=== PATIENT | female | born 1975 | race Caucasian/White ===

== ENCOUNTER 2020-06-11 21:21 | Emergency (ER) | payer MEDICAID, SELFPAY ==
--- NOTE | ~2020-06-11 | XR_ITS ---
EXAMINATION: ELBOW 3 VIEWS, RIGHT CLINICAL INFORMATION: Pain after fall. COMPARISON: None. TECHNIQUE: AP, lateral, oblique views of the right elbow are provided. FINDINGS: There are no fractures or dislocations. There is no elbow joint effusion. XR/XR elbow RT 2V IMPRESSION: Unremarkable right elbow radiographs.
[2020-06-11 21:39] VITALS: BP 128/92; PULSE 110; RESP 16; TEMP 36.6; O2SAT 96; BMI 28.1
[2020-06-11 21:42] VITALS: BP 128/92; PULSE 110; RESP 16; TEMP 36.6; O2SAT 96
--- NOTE | 2020-06-11 22:08 | ED.ALCOHOL ---
HPI - Alcohol General Chief Complaint: ETOH/Substance Use Stated Complaint: ETOH Time Seen by Provider: 06/11/20 22:07 Source: patient Mode of arrival: EMS Limitations: altered mental status (Due to influence of alcohol and drugs.) History of Present Illness HPI narrative: 44 years old female came in by ambulance for evaluation of possible alcohol intoxication. 44-year-old woman was drinking alcohol and using drugs with her friend who called ambulance, patient with alcohol on breath, slurred speech, appear intoxicated. Patient is unable to give meaningful history due to intoxication. Patient complained of right elbow pain but no documented trauma or fall. Related Data Allergies Allergy/AdvReac Type Severity Reaction Status Date / Time acetaminophen [From TYLENOL] Allergy Severe HEAD FEELS Verified 06/11/20 22:59 REALLY BIG AND PT FALLS TO THE GROUND tomato [TOMATO] Allergy Severe THROAT Verified 06/11/20 22:59 CLOSING latex [LATEX] Allergy Intermediate RASH ON Verified 06/11/20 22:59 HANDS bee pollen [Bee Stings] Allergy Unknown HIVES Verified 06/11/20 22:59 citric acid [Citric Acid] Allergy Unknown HIVES Verified 06/11/20 22:59 peanut [Peanut] Allergy Unknown HIVES Verified 06/11/20 22:59 Review of Systems Review of Systems: Yes Unobtainable due to mental condition PMFSH Social History Social History Alcohol intake: current Alcohol intake frequency: 3 or more drinks per day Smoking Status: Never smoker Use of substances other than those prescribed or required for medical reasons: Yes Substance Use Type: Marijuana Substance Use Frequency: Chronic Longstanding Last Used Substance: Just Prior to Admission Any prior treatment program specific to substance use: No Advance Directives: No Advance Directives Information Provided: Yes Physical Exam Vital Signs: Vital Signs: Last Vital Signs Temp 97.8 F 06/11/20 21:42 Pulse 98 06/12/20 00:00 Resp 15 06/12/20 04:00 BP 124/80 06/12/20 02:00 Pulse Ox 96 06/12/20 02:00 Body Mass Index 28.1 Vital signs have been reviewed as appeared to be correct. Blood pressure normal. Heart rate elevated. Respiration rate normal. Temperature normal. Oxygen saturation normal. Appearance: Alert, alcohol on breath, slurred speech, acting as alcohol intoxication. No acute distress. Head: Normal external exam. Normocephalic. Atraumatic. No Tomas signs noted. No raccoon eyes noted Eyes: PERRLA. EOMI. Conjunctiva and sclera normal. Eyelids normal. ENT: TM's Normal. Pharynx normal. Uvula midline. Moist mucous membranes. No trismus noted. No drooling noted. No muffled voice noted. Neck: Normal inspection. Neck supple. FROM. No adenopathy. Thyroid Normal. No meningeal signs. No neck mass noted. CVS: Normal heart rate and rhythm. Heart sound normal. No murmurs noted. Pulses normal throughout. Respiratory: No respiratory distress. Painless inspiration. Breath sounds normal. No wheezes/rales/rhonchi noted. Chest nontender. No accessory muscle usage noted or decreased air movement noted. Abdomen: Soft and nontender. Bowel sounds normal in all 4 quadrants. No distention noted. No organomegaly noted. No visible injury noted. Back: No CVA tenderness. Full range of motion noted. Skin: Skin warm and dry. Normal skin color. Normal skin turgor. No rashes/lesions/lacerations noted. Extremities: No lower extremity edema. Extremities exhibit normal range of motion. Extremities nontender. Neuro: No motor deficit. No sensory deficit. Reflexes normal. Course Course Course Narrative: Assessment and plan. This is a 44-year-old female came in last night with alcohol intoxication, possible seizure. Patient was observed in the emergency department overnight patient now is more sober making some phone calls trying to find a ride back home. Patient feeling that she is going to have a seizure again patient was given Ativan p.o. and her regular dose of Keppra in the emergency department. MDM - Alcohol Lab Data Attestation: I reviewed the patient's lab results. Result diagrams: 06/11/20 22:58 06/11/20 22:58 Labs: Lab Results 06/11/20 06/11/20 06/11/20 Range/Units 22:58 22:58 22:58 WBC 10.2 (4.8-10.8) X10*3/uL RBC 4.23 (4.20-5.50) X10*6/uL Hgb 13.2 (12.0-16.0) g/dl Hct 38.3 (37-47) % MCV 90.5 (80-98) fL MCH 31.2 (27.0-33.0) pg MCHC 34.5 (31.0-35.0) g/dl RDW 17.2 H (11.0-16.0) % Plt Count 516 H (160-400) X10*3/uL MPV 9.2 L (9.4-12.3) fL Immature Gran % (Auto) 0.1 (0.0-0.4) % Neut % (Auto) 44.2 L (45-73) % Lymph % (Auto) 45.4 H (20-40) % [place] % (Auto) 8.0 (2-11) % Eos % (Auto) 1.3 (0-4) % Baso % (Auto) 1.0 (0-2) % Lymph # (Auto) 4.6 (1.2-4.9) X10*3/uL [place] # (Auto) 0.8 (0.1-1.2) X10*3/uL Eos # (Auto) 0.1 (0.0-0.4) X10*3/uL Baso # (Auto) 0.1 (0.0-0.2) X10*3/uL Abs Immat Gran (auto) 0.01 (0.00-0.03) X10*3/uL Absolute Neuts (auto) 4.5 (2.0-8.3) X10*3/uL Absolute Nucleated RBC 0.000 (0.0-0.012) X10*3/uL Nucleated RBC % (auto) 0.0 (0.0-0.2) /100WBC Sodium 144 (135-145) mmol/L Potassium 4.0 (3.3-5.1) mmol/L Chloride 108 (96-108) mmol/L Carbon Dioxide 27 (22-29) mmol/L Anion Gap 13 (12-20) BUN 6 L (9-16) mg/dL Creatinine 0.69 (0.5-1.4) mg/dL Estim Creat Clear Calc 115.5 Estimated GFR > 60 Random Glucose 121 H (60-115) mg/dL Calcium 8.7 (8.4-10.2) mg/dL Magnesium 2.0 (1.6-2.6) mg/dL Total Bilirubin 0.4 (0.0-1.0) mg/dL Direct Bilirubin < 0.2 (0.0-0.5) mg/dL AST 15 (5-31) U/L ALT 18 (0-31) U/L Alkaline Phosphatase 88 (39-117) U/L Total Protein 7.4 (6.5-8.0) g/dL Albumin 4.5 (3.5-5.0) g/dL Lipase 25 (8-78) U/L Ethyl Alcohol 244 mg/dL Imaging Data Right elbow x-ray: Radiologist's impression: No acute fracture or dislocation. Discharge Plan Discharge Clinical Impression: Seizure disorder Alcoholic intoxication Qualifiers: Complication of substance-induced condition: uncomplicated Qualified Code(s): F10.920 - Alcohol use, unspecified with intoxication, uncomplicated Patient Disposition: Home, Self-Care Instructions: Alcohol Intoxication (ED) Referrals: Physician,Unknown [Primary Care Provider] - 2 days
[2020-06-11] MEDS: 0.9 % Sodium Chloride 1,000 ML 999 ML IVCONT (23:00)
[2020-06-11 23:04] LABS: Basophils Absolute Auto 0.1 X10*3/uL (0.0-0.2); Eosinophils Absolute Auto 0.1 X10*3/uL (0.0-0.4); Eosinophils Percent Auto 1.3 % (0-4); Hematocrit 38.3 % (37-47); Hemoglobin 13.2 g/dl (12.0-16.0); Imm Gran Abs Auto 0.01 X10*3/uL (0.00-0.03); Imm Gran Pct Auto 0.1 % (0.0-0.4); Lymphocytes Absolute Auto 4.6 X10*3/uL (1.2-4.9); Lymphocytes Percent Auto 45.4 % (20-40); Mean Corpuscular HGB Conc 34.5 g/dl (31.0-35.0); Mean Corpuscular Hemoglobin 31.2 pg (27.0-33.0); Mean Corpuscular Volume 90.5 fL (80-98); Mean Platelet Volume 9.2 fL (9.4-12.3); Monocytes Absolute Auto 0.8 X10*3/uL (0.1-1.2); Neutrophils Absolute Auto 4.5 X10*3/uL (2.0-8.3); Neutrophils Percent Auto 44.2 % (45-73); Platelet Count 516 X10*3/uL (160-400); Red Blood Count 4.23 X10*6/uL (4.20-5.50); Red Cell Distribution Width 17.2 % (11.0-16.0); White Blood Count 10.2 X10*3/uL (4.8-10.8)
[2020-06-11 23:05] LABS: MANUAL DIFF FLAG NO
[2020-06-11 23:35] LABS: Ethanol 244 mg/dL
[2020-06-11 23:38] LABS: Alanine Aminotransferase 18 U/L (0-31); Albumin Level 4.5 g/dL (3.5-5.0); Alkaline Phosphatase 88 U/L (39-117); Anion Gap 13 (12-20); Aspartate Amino Transferase 15 U/L (5-31); Bilirubin Direct < 0.2 mg/dL (0.0-0.5); Bilirubin Total 0.4 mg/dL (0.0-1.0); Blood Urea Nitrogen 6 mg/dL (9-16); Calcium 8.7 mg/dL (8.4-10.2); Carbon Dioxide 27 mmol/L (22-29); Chloride 108 mmol/L (96-108); Creatinine Clr Calc Pharmacy 115.5; Estimated Glomerular Filt Rate > 60; Glucose Random 121 mg/dL (60-115); Lipase 25 U/L (8-78); Sodium 144 mmol/L (135-145); Total Protein 7.4 g/dL (6.5-8.0)
[2020-06-12] VITALS: PULSE 98; RESP 15; O2SAT 96
[2020-06-12 02:00] VITALS: BP 124/80; RESP 15; O2SAT 96
[2020-06-12 04:00] VITALS: RESP 15
[2020-06-12 06:00] VITALS: BP 143/98; PULSE 106; RESP 15; O2SAT 95
[2020-06-12] MEDS: levETIRAcetam 500 MG TABLET PO (06:26)
[2020-06-12] MEDS: LORazepam 2 MG/ML VIAL IVPUSH (06:26)
--- NOTE | 2020-06-12 06:59 | PC.NURSE ---
report taken from nunu saravia pt here for etoh, has been medically cleared for discharge. pt alert, sitting up in bed calling people for possible ride home, pt sts no one can get me . will try to assist pt in finding ride.
== END 2020-06-12 08:18 | disposition home or self-care (01) ==
PROVIDERS: Emergency Provider Emergency Medicine
DX: R56.9 Unspecified convulsions (principal); F10.129 Alcohol abuse with intoxication, unspecified; M25.521 Pain in right elbow; F12.90 Cannabis use, unspecified, uncomplicated; Y90.8 Blood alcohol level of 240 mg/100 ml or more; Z79.899 Other long term (current) drug therapy
CPT/HCPCS: 36415; 73070; 80048; 80076; 80320; 83690; 83735; 85025; 96360; 96374; 99285; J2060